=== PATIENT | male | born 1980 | race Caucasian/White ===

== ENCOUNTER 2018-03-28 17:47 | Observation (INO) ==
[2018-03-28] MEDS ORDERED: Sod Chloride 0.9% Inj 1,000 ML IV.CONT SCH (18:15)
--- NOTE | 2018-03-28 18:20 | CT ---
EXAM DATE: 03/28/2018 6:17 PM EDT AGE/SEX: 37 years / Male INDICATIONS: Stroke alert, right arm numbness and weakness. CLINICAL DATA: This is the patient's initial encounter. Patient reports that signs and symptoms have been present for 1 day and indicates a pain score of Nonresponsive. MEDICAL/SURGICAL HISTORY: Non-responsive. Non-responsive. RADIATION DOSE: 49.07 CTDI (mGy) COMPARISON: No prior exams available for comparison. TECHNIQUE: CT of the head without contrast. Using automated exposure control and adjustment of the mA and/or kV according to patient size, radiation dose was kept as low as reasonably achievable to ob tain optimal diagnostic quality images. DICOM format image data is available electronically for revi ew and comparison. FINDINGS: Cerebrum: The ventricles are normal for age. No evidence of midline shift, mass lesion, hemorrhage or acute infarction. No extraaxial fluid collections are seen. Posterior Fossa: The cerebellum and brainstem are intact. The 4th ventricle is midline. The cerebe llopontine angle is unremarkable. Extracranial: The visualized portion of the orbits is intact. Skull: The calvaria is intact. No evidence of skull fracture. CONCLUSION: 1. Negative noncontrast head CT. Report was called by [Dr. Acevedo to Dr. Gamez at 1819 hours. ] Electronically signed by: Davide Acevedo MD 03/28/2018 6:19 PM EDT
--- NOTE | 2018-03-28 18:26 | ED ---
HPI General Chief Complaint: Stroke Alert Stated Complaint: poss syncope/evac Time Seen by Provider: 03/28/18 17:56 Source: patient, EMS and machine setter supervisor Mode of arrival: EMS Limitations: no limitations History of Present Illness HPI narrative: 37-year-old male was brought in by EMS for syncope. Patient was working on building a house. Patient's coworker heard a loud noise and found the patient unresponsive. Patient had urinary incontinence. Patient awakened subsequently. Unknown time of loss of consciousness. Patient complains of headache diffuse over the head. Patient denies any visual change. Patient complained of nausea vomiting. Patient complains of weakness and numbness of the right arm. Patient denies any chest pain or shortness of breath. Patient denies abdominal pain. Patient denies any history of seizure. Patient has history hypertension, diabetes, hyperlipidemia. Patient denies history of TIA or CVA. Patient denies any alcohol or drug abuse. MD complaint: loss of consciousness and collapsed Onset (ago): minute(s) -: minutes(s) Prodromal symptoms: none Witnessed: no Context: standing up Injuries sustained associated with event: none Current symptoms: headache and nausea Treatments prior to arrival: none Related Data Home Medications Medication Instructions Recorded Confirmed aspirin 81 mg PO DAILY 03/28/18 03/28/18 lisinopril 2 mg PO DAILY 03/28/18 03/28/18 metformin 500 mg PO BID 03/28/18 03/28/18 Allergies Allergy/AdvReac Type Severity Reaction Status Date / Time No Known Allergies Allergy Unverified 03/28/18 18:00 Review of Systems ROS: all other systems reviewed are negative PMFSH Medical History Medical History Diabetes (Acute) Hypertension (Acute) Sleep apnea (Acute) Social History Social History Substance History: No History of Abuse Second Hand Smoke Exposure: No Smoking Status: Never smoker How Often Do You Have a Drink Containing Alcohol: Never Recent Travel in [facility] within the Last 8 Weeks: No Immunization History Tetanus Immunization: Unsure Hx Influenza Vaccine This Season: No Exam Narrative Exam Narrative: GENERAL: Well-nourished, well-developed patient. SKIN: Focused skin assessment warm/dry. HEAD: Normocephalic. EYES: No scleral icterus. No injection or drainage. Pupils 2 mm equal reactive. NECK: Supple, trachea midline. No JVD or lymphadenopathy. CARDIOVASCULAR: Regular rate and rhythm without murmurs, gallops, or rubs. RESPIRATORY: Breath sounds equal bilaterally. No accessory muscle use. GASTROINTESTINAL: Abdomen soft, non-tender, nondistended. MUSCULOSKELETAL: No cyanosis, or edema. BACK: Nontender without obvious deformity. No CVA tenderness. Neurologic exam: Patient is lethargic however answer questions appropriately. Patient states that he has numbness and weakness in right arm however no objective finding of that. Patient moves all extremity well. No obvious focal neurological deficit. Deep tendon reflexes 1+ and equal. Negative Babinski. Course Initial Documented Vital Signs Temperature 98.6 F 03/28/18 17:51 Pulse Rate 109 H 03/28/18 17:51 Respiratory Rate 20 03/28/18 17:51 Blood Pressure 149/85 H 03/28/18 17:51 Pulse Oximetry 97 03/28/18 17:51 Last Documented Vital Signs Temperature 98.6 F 03/28/18 17:51 Pulse Rate 92 H 03/28/18 19:19 Respiratory Rate 17 03/28/18 19:19 Blood Pressure 131/72 03/28/18 19:19 Pulse Oximetry 98 03/28/18 19:19 Medical Decision Making MDM Narrative Medical decision making narrative: 37-year-old male with syncope, headache, nausea vomiting, subjective weakness and numbness of the right arm. Patient had urinary incontinence during the syncopal episode. Normal saline solution 70 cc an hour. Head of bed flat. O2 2 L nasal cannula. Stroke alert was called. I spoke with neurologist on-call, Dr. Andujar. Differential diagnosis including acute CVA, seizure. Patient with minimal symptoms. TPA is not indicated. Dr. Andujar came to see the patient. Medical Screen Exam Complete: Yes Emergency Medical Condition: Yes Differential Diagnosis Differential Diagnosis: Differential diagnosis including TIA, CVA, seizure, electrolyte imbalance, vasovagal reaction, syncope. Lab Data Lab results reviewed: Yes I reviewed the patient's lab results. Result diagrams: 03/28/18 18:02 Lab Results 03/28/18 03/28/18 03/28/18 Range/Units 18:02 18:02 18:02 WBC 10.8 (4.0-11.0) th/mm3 RBC 4.84 (4.50-5.90) mil/mm3 Hgb 13.8 (13.0-17.0) gm/dL POC Hgb (Calc) (13.0-17.0) g/dL Hct 41.1 (39.0-51.0) % POC Hct (39-51.0) % MCV 85.0 (80.0-100.0) fL MCH 28.5 (27.0-34.0) pg MCHC 33.5 (32.0-36.0) % RDW 15.4 (11.6-17.2) % Plt Count 287 (150-450) th/mm3 MPV 7.7 (7.0-11.0) fL Neut % (Auto) 65.1 (16.0-70.0) % Lymph % (Auto) 24.7 (9.0-44.0) % [place] % (Auto) 8.5 H (0.0-8.0) % Eos % (Auto) 1.1 (0.0-4.0) % Baso % (Auto) 0.6 (0.0-2.0) % Neut # (Auto) 7.0 (1.8-7.7) th/mm3 Lymph # (Auto) 2.7 (1.0-4.8) th/mm3 [place] # (Auto) 0.9 (0.0-0.9) th/mm3 Eos # (Auto) 0.1 (0.0-0.4) th/mm3 Baso # (Auto) 0.1 (0.0-0.2) th/mm3 WBC Differential . Differential Comment Auto diff final PT 10.0 (9.8-11.6) sec INR 1.0 Ratio APTT 27.2 (24.3-30.1) sec POC Sodium (137-144) mmol/L POC Potassium (3.6-5.0) mmol/L POC Chloride (102-111) mmol/L POC BUN (5-21) mg/dL POC Creatinine (0.6-1.3) mg/dL POC Glucose (68-110) mg/dL Total Creatine Kinase 117 (39-308) U/L Troponin I 0.02 (0.02-0.05) ng/mL 03/28/18 Range/Units 18:02 WBC (4.0-11.0) th/mm3 RBC (4.50-5.90) mil/mm3 Hgb (13.0-17.0) gm/dL POC Hgb (Calc) 14.3 (13.0-17.0) g/dL Hct (39.0-51.0) % POC Hct 42.0 (39-51.0) % MCV (80.0-100.0) fL MCH (27.0-34.0) pg MCHC (32.0-36.0) % RDW (11.6-17.2) % Plt Count (150-450) th/mm3 MPV (7.0-11.0) fL Neut % (Auto) (16.0-70.0) % Lymph % (Auto) (9.0-44.0) % [place] % (Auto) (0.0-8.0) % Eos % (Auto) (0.0-4.0) % Baso % (Auto) (0.0-2.0) % Neut # (Auto) (1.8-7.7) th/mm3 Lymph # (Auto) (1.0-4.8) th/mm3 [place] # (Auto) (0.0-0.9) th/mm3 Eos # (Auto) (0.0-0.4) th/mm3 Baso # (Auto) (0.0-0.2) th/mm3 WBC Differential Differential Comment PT (9.8-11.6) sec INR Ratio APTT (24.3-30.1) sec POC Sodium 143 (137-144) mmol/L POC Potassium 4.0 (3.6-5.0) mmol/L POC Chloride 100 L (102-111) mmol/L POC BUN 16 (5-21) mg/dL POC Creatinine 1.0 (0.6-1.3) mg/dL POC Glucose 101 (68-110) mg/dL Total Creatine Kinase (39-308) U/L Troponin I (0.02-0.05) ng/mL Imaging Data Attestation: I personally reviewed and interpreted this imaging study as follows : Radiologist's impression: Chest X-Ray 03/28/18 18:04 CONCLUSION: No acute cardiopulmonary disease. Head CT 03/28/18 18:04 CONCLUSION: 1. Negative noncontrast head CT. Report was called by [Dr. Acevedo to Dr. Gamez at 1819 hours. ] Head CTA 03/28/18 18:04 CONCLUSION: 1. Unremarkable exam. Neck CTA 03/28/18 18:04 CONCLUSION: 1. Unremarkable exam. Discharge Plan Discharge Disposition Patient Disposition: 30 Still Patient Discharge Details Diagnosis: Syncope Physicians Team ED Provider: Jayme Gamez Primary Care Provider: UNKNOWN, Other Providers: Rich Andujar Rxs /Orders / Referrals /Forms Prescriptions: No Action metformin 500 mg Tablet 500 mg PO BID RF: 0 aspirin 81 mg Tablet,Chewable 81 mg PO DAILY RF: 0 lisinopril 5 mg Tablet 2 mg PO DAILY RF: 0 Status ED Status: With Doctor
[2018-03-28 18:34] LABS: Baso # (Auto) 0.1 th/mm3 (0.0-0.2); Baso % (Auto) 0.6 % (0.0-2.0); Eos # (Auto) 0.1 th/mm3 (0.0-0.4); Eos % (Auto) 1.1 % (0.0-4.0); Hematocrit 41.1 % (39.0-51.0); Hemoglobin 13.8 gm/dL (13.0-17.0); Lymph # (Auto) 2.7 th/mm3 (1.0-4.8); Lymph % (Auto) 24.7 % (9.0-44.0); Mean Corpuscular HGB Conc 33.5 % (32.0-36.0); Mean Corpuscular Hemoglobin 28.5 pg (27.0-34.0); Mean Platelet Volume 7.7 fL (7.0-11.0); Mono # (Auto) 0.9 th/mm3 (0.0-0.9); Mono % (Auto) 8.5 % (0.0-8.0); Neut % (Auto) 65.1 % (16.0-70.0); Platelet Count 287 th/mm3 (150-450); Red Blood Count 4.84 mil/mm3 (4.50-5.90); Red Cell Distribution Width 15.4 % (11.6-17.2); White Blood Count 10.8 th/mm3 (4.0-11.0)
[2018-03-28 18:42] LABS: Activated Partial Thrombo Time 27.2 sec (24.3-30.1)
--- NOTE | 2018-03-28 18:52 | CT ---
EXAM DATE: 03/28/2018 6:40 PM EDT AGE/SEX: 37 years / Male INDICATIONS: Stroke alert, right arm weakness and numbness. CLINICAL DATA: This is the patient's initial encounter. Patient reports that signs and symptoms have been present for 1 day and indicates a pain score of Nonresponsive. MEDICAL/SURGICAL HISTORY: Non-responsive. Non-responsive. RADIATION DOSE: 42.62 CTDI (mGy) ; Combined studies ; Patient body habitus COMPARISON: [facility] – [place], [place] HEAD W/O CONTRAST, 03/28/2018. . TECHNIQUE: Volumetric scanning was performed using a multi-row detector CT scanner during bolus infu karen of 99 ml Visipaque 320 (iodixanol) nonionic water-soluble contrast as a cumulative dose for mul tiple exams. The data was post processed with a variety of visualization algorithms including full volume maximum intensity projection, multi-planar sliding thin slab reformation, curved planar reform ation, and surface rendering techniques. Using automated exposure control and adjustment of the mA a nd/or kV according to patient size, radiation dose was kept as low as reasonably achievable to obtain optimal diagnostic quality images. DICOM format image data is available electronically for review a nd comparison. FINDINGS: There is excellent visualization of the major intracranial arteries out to the second-order branch ve ssels. There is no evidence for aneurysm, vessel truncation or stenosis, and no evidence for vascula r malformation. CONCLUSION: 1. Unremarkable exam. Electronically signed by: Davide Acevedo MD 03/28/2018 6:51 PM EDT
[2018-03-28 19:18] LABS: Troponin I 0.02 ng/mL (0.02-0.05)
--- NOTE | 2018-03-28 19:21 | CT ---
EXAM DATE: 03/28/2018 7:10 PM EDT AGE/SEX: 37 years / Male INDICATIONS: Stroke alert, right arm weakness and numbness. CLINICAL DATA: This is the patient's initial encounter. Patient reports that signs and symptoms have been present for 1 day and indicates a pain score of Nonresponsive. MEDICAL/SURGICAL HISTORY: Non-responsive. Non-responsive. RADIATION DOSE: 42.62 CTDI (mGy) ; Combined studies ; Patient body habitus COMPARISON: No prior exams available for comparison. TECHNIQUE: Volumetric scanning was performed using a multirow detector CT scanner during bolus infus ion of 99 ml Visipaque 320 (iodixanol) nonionic water-soluble contrast as a cumulative dose for mult iple exams. The data was postprocessed with a variety of visualization algorithms including full-vo lume maximum intensity projection, multiplanar sliding thin-slab reformation, curved-planar reformati on, and surface-rendering techniques. Using automated exposure control and adjustment of the mA and/ or kV according to patient size, radiation dose was kept as low as reasonably achievable to obtain op timal diagnostic quality images. DICOM format image data is available electronically for review and comparison. FINDINGS: Aortic Arch: There is a three-vessel origin of the great vessels from the aorta. No evidence of ost ial narrowing Right Carotid: The common carotid artery is intact. The carotid bulb has a normal configuration wit hout ulceration or narrowing. The internal carotid artery lumen is smooth without stenosis. The ext ernal carotid artery is intact. Left Carotid: The common carotid artery is intact. The carotid bulb has a normal configuration with out ulceration or narrowing. The internal carotid artery lumen is smooth without stenosis. The exte rnal carotid artery is intact. Vertebrals: The vertebral arteries have a symmetric diameter. No stenotic lesions are seen. Percent stenosis is calculated using the diameter of the stenotic region over the diameter of the nor mal distal internal carotid artery. CONCLUSION: 1. Unremarkable exam. Electronically signed by: Davide Acevedo MD 03/28/2018 7:19 PM EDT
--- NOTE | 2018-03-28 19:25 | XR ---
EXAM DATE: 03/28/2018 6:55 PM EDT AGE/SEX: 37 years / Male INDICATIONS: Stroke alert. CLINICAL DATA: This is the patient's initial encounter. Patient reports that signs and symptoms have been present for 1 day and indicates a pain score of Nonresponsive. MEDICAL/SURGICAL HISTORY: Non-responsive. Non-responsive. COMPARISON: No prior exams available for comparison. FINDINGS: A single AP view of the chest demonstrates the lungs to be symmetrically aerated without evidence of mass, infiltrate or effusion. The cardiomediastinal contours are unremarkable. Osseous structures a re intact. CONCLUSION: No acute cardiopulmonary disease. Electronically signed by: Davide Acevedo MD 03/28/2018 7:24 PM EDT
--- NOTE | 2018-03-28 20:06 | MR ---
EXAM DATE: 03/28/2018 8:03 PM EDT AGE/SEX: 37 years / Male INDICATIONS: Dizziness. Left arm numbness. Cephalgia. CLINICAL DATA: This is the patient's initial encounter. Patient reports that signs and symptoms have been present for 1 day and indicates a pain score of 0/10. MEDICAL/SURGICAL HISTORY: Diabetes mellitus type II. Hypertension. None. COMPARISON: [facility] – [place], CT HEAD W/O CONTRAST, 03/28/2018. . TECHNIQUE: Multiplanar, multisequence examination of the brain was performed without contrast. FINDINGS: Cerebrum: The ventricles are normal for age. No evidence of midline shift, mass lesion, hemorrhage or acute infarction. No extraaxial fluid collections are seen. The pituitary gland and suprasellar cistern are normal in configuration. White Matter: No significant signal abnormalities are seen in the white matter. Posterior Fossa: The cerebellum and brainstem are intact. The 4th ventricle is midline. The cerebel lopontine angle is unremarkable. The cerebellar tonsils are normal in position. Diffusion Imaging: No focal areas of restricted diffusion are seen. No evidence of acute infarction . Extracranial: The visualized portions of the orbits and paranasal sinuses are unremarkable. CONCLUSION: 1. Negative noncontrast MRI of the brain with no evidence of infarction. Electronically signed by: Davide Acevedo MD 03/28/2018 8:05 PM EDT
[2018-03-28 21:11] LABS: Albumin 3.7 g/dL (3.4-5.0); Anion Gap 8 meq/L (5-15); Aspartate Aminotransferase 14 U/L (15-37); Blood Urea Nitrogen 15 mg/dL (7-18); Calcium 8.7 mg/dL (8.5-10.1); Carbon Dioxide 27.6 meq/L (21.0-32.0); Chloride 102 meq/L (98-107); Glomerular Filtration Rate 79 mL/min (>89); Glucose,Random 106 mg/dL (74-106); Potassium 3.8 meq/L (3.5-5.1); Sodium 138 meq/L (136-145)
[2018-03-28 21:12] LABS: Alanine Aminotransferase 28 U/L (12-78)
[2018-03-28 21:22] LABS: Alkaline Phosphatase 103 U/L (45-117); Total Protein 8.3 g/dL (6.4-8.2)
[2018-03-28] MEDS ORDERED: Acetaminophen 325 MG Tablet PO PRN (21:23)
[2018-03-28] MEDS ORDERED: Dextrose 50% in Water 50 ML Vial IV.PUSH PRN (21:30)
--- NOTE | 2018-03-28 21:43 | P.HP ---
History of Present Illness Service: [facility] Primary Care Physician: UNKNOWN History of Present Illness: 37-year-old male with a past medical history significant for hypertension, LILIAN, diabetes mellitus and CHF presents to the emergency department after a syncopal event. The patient reports that he was dizzy and had a headache. He lost consciousness while at work and his coworkers called 911. Per their report, the patient fell to the ground and had loss of bladder continence. He was confused for approximately 20-30 minutes following the incident. No seizure activity was witnessed. The patient denies any chest pain or shortness of breath. No abdominal pain. No nausea/vomiting/diarrhea. No fevers/chills. No lateralizing signs/symptoms. Inpatient Certification: I certify that the inpatient services were ordered in accordance with Medicare regulations governing the order. This includes certification that hospital inpatient services are reasonable and necessary and in the case of services not specified as inpatient-only under 42 CFR 419.22(n), that they are appropriately provided as inpatient services in accordance to with the 2-midnight benchmark under 43 CFR 412.3(e) Review of Systems All other systems reviewed negative except as stated [facility] - History History Provided By: Patient - Medical History Medical History: Medical History (Last Updated 03/28/18 @ 21:35 by Sissy Ewing MD) CHF (congestive heart failure) Diabetes Hypertension Sleep apnea - Surgical History Surgical History: Surgical History (Last Updated 03/28/18 @ 21:36 by Sissy Ewing MD) History of appendectomy History of cardiac catheterization - Family History Family History: Family History (Last Updated 03/28/18 @ 21:36 by Sissy Ewing MD) Other Diabetes mellitus - Tobacco History Second Hand Smoke Exposure: No Tobacco Use In Past 30 Days: No Smoking Status: Never smoker - Alcohol History How Often Do You Have a Drink Containing Alcohol: Never - Substance Use History Substance History: No History of Abuse - Travel History Recent Travel in the [place] Within the Last 8 Weeks: No - Immunization History Tetanus Immunization: Unsure Hx Influenza Vaccine This Season: No Medications and Allergies Active Medications: Active Medications Acetaminophen (Tylenol) 650 mg PO Q4H PRN PRN Reason: Temp > 100.4 Aspirin (Aspirin Chew) 81 mg PO DAILY LATA Dextrose (D50w Vial) 50 ml IV.PUSH UNSCH PRN PRN Reason: PER HYPOGLYCEMIA PROTOCOL Glucagon (Glucagon Inj) 1 mg OTHER PRN PRN PRN Reason: for Hypoglycemia Protocol Sodium Chloride (Ns Inj) 1,000 mls @ 70 mls/hr IV.CONT .[id number] LATA Last Infusion: 03/28/18 21:06 Dose: 70 mls/hr Insulin Human Regular (Novolin R Correctional Sugar Inj) 0 units SQ ACHS AND 3AM LATA; Protocol Ketorolac Tromethamine (Toradol Inj) 30 mg IV.PUSH ONCE ONE Stop: 03/28/18 21:31 Ondansetron HCl (Zofran Inj) 4 mg IV.PUSH Q6H PRN PRN Reason: NAUSEA OR VOMITING Allergies Allergy/AdvReac Type Severity Reaction Status Date / Time No Known Allergies Allergy Unverified 03/28/18 18:00 Home Medications Medication Instructions Recorded Confirmed Type aspirin 81 mg PO DAILY 03/28/18 03/28/18 History lisinopril 2 mg PO DAILY 03/28/18 03/28/18 History metformin 500 mg PO BID 03/28/18 03/28/18 History Exam Vital signs: Vital Signs 03/28/18 17:51 03/28/18 18:04 03/28/18 18:18 Temperature 98.6 F Pulse Rate 109 H 98 H Respiratory Rate 20 16 Blood Pressure 149/85 H 159/88 H Pulse Oximetry 97 98 99 03/28/18 18:21 03/28/18 18:38 03/28/18 18:47 Temperature Pulse Rate 98 H 102 H Respiratory Rate 16 Blood Pressure 139/84 Pulse Oximetry 99 98 03/28/18 19:19 03/28/18 21:03 Temperature Pulse Rate 92 H 102 H Respiratory Rate 17 17 Blood Pressure 131/72 147/85 H Pulse Oximetry 98 98 Intake & Output 03/28/18 03/28/18 03/29/18 06:59 18:59 06:59 Weight 140.614 kg Narrative: Gen.: No acute distress Head: Normocephalic. Atraumatic. EENT: Pupils equal round and reactive to light. Nose without drainage. Airway intact. Throat without injection. Cardiovascular: Regular rate and rhythm. No murmurs, rubs or gallops. Respiratory: Lungs clear to auscultation bilaterally. No wheezes or rhonchi. Abdomen: Soft, nontender, nondistended. No peritoneal signs. Musculoskeletal: No gross deformities. No edema. Skin: No obvious rashes or erythema. Neuro: Sensory and motor grossly intact. Cranial nerves II through XII grossly intact. 5/5 strength throughout Results - Labs CBC & Chem 7: 03/28/18 18:02 03/28/18 20:30 Labs: Laboratory Results - last 24 hr 03/28/18 03/28/18 03/28/18 18:02 18:02 18:02 WBC 10.8 RBC 4.84 Hgb 13.8 POC Hgb (Calc) Hct 41.1 POC Hct MCV 85.0 MCH 28.5 MCHC 33.5 RDW 15.4 Plt Count 287 MPV 7.7 Neut % (Auto) 65.1 Lymph % (Auto) 24.7 [place] % (Auto) 8.5 H Eos % (Auto) 1.1 Baso % (Auto) 0.6 Neut # (Auto) 7.0 Lymph # (Auto) 2.7 [place] # (Auto) 0.9 Eos # (Auto) 0.1 Baso # (Auto) 0.1 WBC Differential . Differential Comment Auto diff final PT 10.0 INR 1.0 APTT 27.2 POC Sodium Sodium POC Potassium Potassium POC Chloride Chloride Carbon Dioxide Anion Gap POC BUN BUN Creatinine POC Creatinine Estimated GFR POC Glucose Random Glucose Calcium Total Bilirubin AST ALT Alkaline Phosphatase Total Creatine Kinase 117 Troponin I 0.02 Total Protein Albumin TSH 03/28/18 03/28/18 18:02 20:30 WBC RBC Hgb POC Hgb (Calc) 14.3 Hct POC Hct 42.0 MCV MCH MCHC RDW Plt Count MPV Neut % (Auto) Lymph % (Auto) [place] % (Auto) Eos % (Auto) Baso % (Auto) Neut # (Auto) Lymph # (Auto) [place] # (Auto) Eos # (Auto) Baso # (Auto) WBC Differential Differential Comment PT INR APTT POC Sodium 143 Sodium 138 POC Potassium 4.0 Potassium 3.8 POC Chloride 100 L Chloride 102 Carbon Dioxide 27.6 Anion Gap 8 POC BUN 16 BUN 15 Creatinine 1.05 POC Creatinine 1.0 Estimated GFR 79 L POC Glucose 101 Random Glucose 106 Calcium 8.7 Total Bilirubin 0.4 AST 14 L ALT 28 Alkaline Phosphatase 103 Total Creatine Kinase Troponin I Total Protein 8.3 H Albumin 3.7 TSH 1.860 - Imaging Impressions Chest X-Ray 03/28/18 18:04 CONCLUSION: No acute cardiopulmonary disease. Head CT 03/28/18 18:04 CONCLUSION: 1. Negative noncontrast head CT. Report was called by [Dr. Acevedo to Dr. Gamez at 1819 hours. ] Head CTA 03/28/18 18:04 CONCLUSION: 1. Unremarkable exam. Neck CTA 03/28/18 18:04 CONCLUSION: 1. Unremarkable exam. Head MRI 03/28/18 18:51 CONCLUSION: 1. Negative noncontrast MRI of the brain with no evidence of infarction. Caprini VTE Risk Assessment Caprini VTE Risk Assessment: No/Low Risk (score <= 1) Caprini Risk Assessment Model: Point Value = 1 Point Value = 2 Point Value = 3 Point Value = 5 Age 41-60 Minor surgery BMI > 25 kg/m2 Swollen legs Varicose veins or History of unexplained or recurrent spontaneous Oral contraceptives or hormone replacement Sepsis (< 1 month) Serious lung disease, including pneumonia (< 1 month) Abnormal pulmonary function Acute myocardial infarction Congestive heart failure (< 1 month) History of inflammatory bowel disease Medical patient at bed rest Age 61-74 Arthroscopic surgery Major open surgery (> 45 min) Laparoscopic surgery (> 45 min) Malignancy Confined to bed (> 72 hours) Immobilizing plaster cast Central venous access Age >= 75 History of VTE Family history of VTE Factor V Leiden Prothrombin [id number] Lupus anticoagulant Anticardiolipin antibodies Elevated serum homocysteine Heparin-induced thrombocytopenia Other congenital or acquired thrombophilia Stroke (< 1 month) Elective arthroplasty Hip, pelvis, or leg fracture Acute spinal cord injury (< 1 month) Prophylaxis Regimen: Total Risk Factor Score Risk Level Prophylaxis Regimen 0-1 Low Early ambulation 2 Moderate Order ONE of the following: *Sequential Compression Device (SCD) *Heparin 5000 units SQ BID 3-4 Higher Order ONE of the following medications: *Heparin 5000 units SQ TID *Enoxaparin/Lovenox 40 mg SQ daily (WT < 150 kg, CrCl > 30 mL/min) *Enoxaparin/Lovenox 30 mg SQ daily (WT < 150 kg, CrCl > 10-29 mL/min) *Enoxaparin/Lovenox 30 mg SQ BID (WT < 150 kg, CrCl > 30 mL/min) AND/OR *Sequential Compression Device (SCD) 5 or more Highest Order ONE of the following medications: *Heparin 5000 units SQ TID (Preferred with Epidurals) *Enoxaparin/Lovenox 40 mg SQ daily (WT < 150 kg, CrCl > 30 mL/min) *Enoxaparin/Lovenox 30 mg SQ daily (WT < 150 kg, CrCl > 10-29 mL/min) *Enoxaparin/Lovenox 30 mg SQ BID (WT < 150 kg, CrCl > 30 mL/min) AND *Sequential Compression Device (SCD) Assessment and Plan - Plan Assessment/plan: 1. Syncope/? seizure/? CVA/TIA Head CT/CTA and MRI negative for acute process EEG pending Echo pending Neurology and cardiology consulted, appreciate assistance 2. Diabetes mellitus Holding home metformin Sliding-scale insulin Monitor blood glucose 3. Hypertension/CAD Holding home lisinopril for permissive hypertension Continue aspirin FEN N.p.o. Electrolytes: Monitor and replete as needed NS at 70 cc/hour
[2018-03-28] MEDS ORDERED: Ketorolac Inj 30 MG/ML (IVP) Vial IV.PUSH ONE (22:00)
--- NOTE | 2018-03-28 22:29 | MB ---
cc: Rich Andujar MD, PhD DATE: 03/28/2018 REASON FOR CONSULTATION: Stroke alert. HISTORY OF PRESENT ILLNESS: Mr. Rosie Razo is a 37-year-old man who was at work. His coworkers heard a noise and went to tend to him and found that he was unconscious. He had urinary incontinence. [facility] was called. There was some questionable right-sided weakness. He was brought to the ER. He was complaining of some numbness in the right, but no demonstrable weakness was identified. No focal neurologic deficits seen. Stroke alert was initiated. His CT scan of the brain is within normal limits. A CTA of the brain is normal. PAST MEDICAL HISTORY: He has a history of hypertension, hypercholesterolemia, sleep apnea, diabetes. NEUROLOGICAL EXAMINATION: VITAL SIGNS: Blood pressure 159/88, pulse 98 and regular, respirations 16. HIGHER CORTICAL FUNCTIONS: Cannot be fully assessed due to a language barrier. He is following commands, however. CRANIAL NERVES: Intact. MOTOR: He is able to lift both arms with no drift and both legs with no drift. I cannot appreciate any definite focal weakness. Reflexes are symmetric. IMAGING STUDIES: CTA of brain normal. CT brain normal. CTA neck pending. LABORATORY DATA: White count 10,800, hemoglobin 13.8, hematocrit 41.1%, platelet count 287,000. PT 10, INR 1, aPTT 27.2. Sodium 143, potassium 4, chloride 100, BUN 16, creatinine 1, glucose 101. IMPRESSION: Loss of consciousness with transient focal deficits that now appeared to have resolved. I do not see any definite focal deficits. Therefore, the patient would not be a candidate for intravenous tPA. There is no large vessel occlusion to consider intervention. There is a possibility this could have been a seizure with a postictal Pierce paralysis as well, which is now resolving. RECOMMENDATIONS: Start aspirin 325 mg daily. We will obtain an MRI of the brain for further evaluation, EEG as well and echocardiogram. Rich Andujar MD, PhD ADI/tang , 06:57 PM , 07:04 PM
[2018-03-28 23:05] VITALS: BP 110/56; PULSE 73; RESP 20; TEMP 98.2; O2SAT 95
[2018-03-28 23:18] LABS: Bilirubin,Urine Negative (Negative); Clarity,Urine Clear (Clear); Color,Urine Yellow (Yellw/Straw); Glucose,Urine (UA) Negative (Negative); Leukocyte Esterase,Urine Trace (Negative); Mucus,Urine Few /lpf (Occasional); Nitrite,Urine Negative (Negative); Squamous Epithelial Cell,Urine 1 /hpf (0-5)
[2018-03-28 23:21] LABS: Amphetamine Screen,Urine Neg (Neg); Barbiturate Screen,Urine Neg (Neg); Cannabinoid Screen,Urine Neg (Neg); Cocaine Screen,Urine Neg (Neg)
[2018-03-28 23:32] LABS: Opiate Screen,Urine Neg (Neg)
[2018-03-29] MEDS ORDERED: Insulin NovoLIN Regular Correctional Sugar Inj SQ SCH (03:00)
--- NOTE | 2018-03-29 13:47 | ECG ---
Date Performed: 03/28/2018 Time Performed: 17:55:03 PTAGE: 37 years EKG: Sinus rhythm POSSIBLE LEFT ATRIAL ENLARGEMENT POSSIBLE RIGHT VENTRICULAR CONDUCTION DELAY POSSIBLE INFERIOR MYOCA RDIAL INFARCTION ANTEROLATERAL MYOCARDIAL INFARCTION ACUTE [facility] Anterolateral ST elevation Clinic al correlation is recommended NO PREVIOUS TRACING DOCTOR: Johnson Moreau Interpretating Date/Time 03/29/2018 14:43:33
--- NOTE | 2018-03-29 13:47 | ECG ---
Date Performed: 03/28/2018 Time Performed: 22:59:41 PTAGE: 37 years EKG: Sinus rhythm ST ELEVATION, PROBABLY EARLY REPOLARIZATION BORDERLINE ECG Since the PREVIOUS TRACING , no significant change noted PREVIOUS TRACIN03/28/2018 17.55 DOCTOR: Johnson Moreau Interpretating Date/Time 03/29/2018 13:47:07
== END 2018-03-29 01:10 | disposition left against medical advice (07) ==
LOC: NEPD 17:47 → NEDA 20:15 → INTOOBSV 20:15 → NEPGCP 21:01
PROVIDERS: ADMIT Family Medicine; ATTEND Family Medicine
DX: E11.9 Type 2 diabetes mellitus without complications; Z79.84 Long term (current) use of oral hypoglycemic drugs; E78.00 Pure hypercholesterolemia, unspecified; R55 Syncope and collapse; W19.XXXA Unspecified fall, initial encounter; G47.33 Obstructive sleep apnea (adult) (pediatric); Z90.49 Acquired absence of other specified parts of digestive tract; Z79.82 Long term (current) use of aspirin; E78.5 Hyperlipidemia, unspecified; I50.9 Heart failure, unspecified; Z83.3 Family history of diabetes mellitus; R32 Unspecified urinary incontinence; I25.10 Atherosclerotic heart disease of native coronary artery without angina pectoris; I11.0 Hypertensive heart disease with heart failure